=== PATIENT | male | born 1955 | race Caucasian/White ===

== ENCOUNTER 2017-07-30 19:26 | Emergency (ER) | payer MEDICAID ==
--- NOTE | 2017-07-30 20:36 | ED Physician Chart ---
ED Chief Complaint/HPI - Patient Information Allergies:: Allergies Allergy/AdvReac Type Severity Reaction Status Date / Time No Known Allergies Allergy Verified 07/30/17 19:53 Vitals:: Vital Signs - 8 hr 07/30/17 19:45 Temp 97.8 F HR 92 RR 18 BP 111/52 O2 Sat % 97 <Mil Zavala - Last Filed: 07/30/17 23:39> - Patient Information Date Seen:: 07/30/17 Time Seen:: 20:36 History of Present Illness:: 62 yo male patient was found by Chidi CRABT[place] on [address] because of ETOH intoxication and general weakness. Patient had nausea without vomiting. Allergies:: Allergies Allergy/AdvReac Type Severity Reaction Status Date / Time No Known Allergies Allergy Verified 07/30/17 19:53 Vitals:: Vital Signs - 8 hr 07/30/17 19:45 Temp 97.8 F HR 92 RR 18 BP 111/52 O2 Sat % 97 <Mikael Sharp - Last Filed: 08/03/17 00:59> ED Review of Systems - Review of Systems General/Constitutional: No fever, No chills Skin: No skin lesions Head: No headache Eyes: No loss of vision ENT: No earache Neck: No neck pain Cardio Vascular: No chest pain Pulmonary: No SOB GI: Nausea, No vomiting Musculoskeletal: No bone or joint pain <Mikael Sharp Last Filed: 08/03/17 00:59> ED Past Medical History - Past Medical History Obtainable: No (intoxicated) <Mil Zavala - Last Filed: 07/30/17 23:39> - Past Medical History Obtainable: No <Mikael Sharp Last Filed: 08/03/17 00:59> ED Physical Exam - Physical Examination Other Gen/Cons comments:: ETOH intoxicated Head: Atraumatic Skin: No ecchymosis ENMT: Nasal exam nl Neck: No nuchal rigidity Respiratory: Clear to Auscultation, No Wheeze/Rhonchi/Rales Cardio Vascular: RRR, No murmur, gallop, rubs, NL S1 S2 GI: No tenderness/rebounding/guarding Extremities: Full ROM Neuro/Psych: No focal deficits <Mikael Sharp Last Filed: 08/03/17 00:59> ED Labs/Radiology/EKG Results - Lab Results Results: Laboratory Tests 07/30/17 07/30/17 20:51 20:51 WBC 6.5 RBC 4.17 L Hgb 12.9 Hct 38.4 L MCV 92.1 MCH 31.0 H MCHC Differential 33.7 RDW 12.7 Plt Count 247 MPV 8.1 Neutrophils % 39.7 L Lymphocytes % 48.1 Monocytes % 9.0 Eosinophils % 2.5 Basophils % 0.7 Sodium 128 L Potassium 4.0 Chloride 98 Carbon Dioxide 22.4 Anion Gap 11.6 BUN 3 L Creatinine 0.4 L Est GFR ( Amer) > 60.0 Est GFR (Non-Af Amer) > 60.0 BUN/Creatinine Ratio 7.5 Glucose 89 Calcium 9.1 Total Bilirubin 0.3 AST 32 ALT 17 Alkaline Phosphatase 80 Total Protein 7.3 Albumin 3.7 L Globulin 3.6 Albumin/Globulin Ratio 1.0 <Mil Zavala - Last Filed: 07/30/17 23:39> ED Assessment - Assessment General Assessment: Etoh intoxication Critical Care Time: 45 min Excludes all billable procedures: Yes This condition life threatening/high prob of deterioration: No Assessment/Comments:: Diet D/c home <Mikael Sharp - Last Filed: 08/03/17 00:59> ED Septic Shock - <6hrs of presentation: Vital Signs: Vital Signs - 8 hr 07/30/17 19:45 Temp 97.8 F HR 92 RR 18 BP 111/52 O2 Sat % 97 <Mil Zavala - Last Filed: 07/30/17 23:39> - . Is Septic Shock (SBP<90, OR Lactate>4 mmol\L) present?: No - <6hrs of presentation: Vital Signs: Vital Signs - 8 hr 07/30/17 19:45 Temp 97.8 F HR 92 RR 18 BP 111/52 O2 Sat % 97 <Mikael Sharp - Last Filed: 08/03/17 00:59> ED Discharge Plan <Mil Zavala - Last Filed: 07/30/17 23:39> <Mikael Sharp - Last Filed: 08/03/17 00:59> - Patient Disposition Admit/Discharge/Transfer: PT DISCHARGED HOME Condition at Disposition: Improved Instructions: Alcohol Intoxication, [id number]
[2017-07-30 20:57] LABS: % BASOPHILS 0.7 % (0.0-2.0); % EOSINOPHILS 2.5 % (0.0-5.0); % LYMPHOCYTES 48.1 % (20.0-50.0); % NEUTROPHILS 39.7 % (40.0-80.0); EOSINOPHILE ABSOLUTE 0.2 Th/cmm (0.1-0.4); HEMATOCRIT 38.4 % (41.0-60); HEMOGLOBIN 12.9 gm/dL (12-16); LYMPHOCYTE ABSOLUTE 3.1 Th/cmm (1.5-3.0); MEAN CELL VOLUME 92.1 fl (80-99); MEAN CORPUSCULAR HGB CONC 33.7 pg (28.0-36.0); MEAN PLATELET VOLUME 8.1 fl; MONOCYTE ABSOLUTE 0.6 Th/cmm (0.3-1.0); NEUTROPHILE ABSOLUTE 2.6 Th/cmm (1.8-8.0); PLATELET COUNT 247 Th/cmm (150-400); RED BLOOD COUNT 4.17 Mil/cmm (4.30-5.70); RED CELL DISTRIBUTION WIDTH 12.7 % (11.5-20.0); WHITE BLOOD COUNT 6.5 Th/cmm (4.8-10.8)
[2017-07-30 21:12] LABS: ALBUMIN 3.7 gm/dL (4.2-5.5); ALKALINE PHOSPHATASE 80 U/L (34-104); ANION GAP 11.6 (7.0-16.0); BILIRUBIN,TOTAL 0.3 mg/dL (0.3-1.0); BUN - UREA NITROGEN 3 mg/dL (7-25); CALCIUM SERUM 9.1 mg/dL (8.6-10.3); CARBON DIOXIDE 22.4 mEq/L (21.0-31.0); CHLORIDE 98 mEq/L (98-107); CREATININE - SERUM 0.4 mg/dL (0.7-1.3); GFR AFRICAN-AMERICAN > 60.0 ml/min (>90); GFR NON AFRICAN-AMERICAN > 60.0 ml/min; GLUCOSE 89 mg/dL (70-105); SGOT 32 U/L (13-39); SGPT/ALT 17 U/L (7-52); SODIUM SERUM 128 mEq/L (136-145); TOTAL PROTEIN,SERUM 7.3 gm/dL (6.0-8.3)
== END 2017-07-31 06:35 | disposition home or self-care (01) ==
LOC: ER 19:26
DX: F10.129 Alcohol abuse with intoxication, unspecified (principal)
CPT/HCPCS: 36415-UA; 80053-TC; 82150-TC; 83690-TC; 83735-TC; 85025-TC; Z7502